=== PATIENT | female | born 1975 | race Caucasian/White ===

== ENCOUNTER 2020-06-09 07:55 | Emergency (ER) | payer OTHER ==
[~2020-06-09] VITALS: Ht 165.1 cm; Wt 83.0 kg
[2020-06-09 08:06] VITALS: Ht 165.1 cm; Wt 83.0 kg
[2020-06-09] MEDS ORDERED: NAPROSYN500 MG PO (09:23)
[2020-06-09 09:42] VITALS: BP 108/50
== END 2020-06-09 09:42 | disposition home or self-care (01) ==
LOC: ED 07:55
DX: M53.3 Sacrococcygeal disorders, not elsewhere classified (principal)